=== PATIENT | female | born 1975 | race Caucasian/White ===

== ENCOUNTER 2019-10-11 00:24 | Emergency (ER) | payer MEDICAID ==
[~2019-10-11] VITALS: Ht 149.9 cm; Wt 61.2 kg
[2019-10-11 00:29] VITALS: BP 139/74
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
[2019-10-11 00:57] VITALS: BP 139/74
--- NOTE | 2019-10-11 00:59 | NUR ---
Patient discharged with v/s stable. Written and verbal after care instructions given and explained. Patient alert, oriented and verbalized understanding of instructions. Ambulatory with steady gait. All questions addressed prior to discharge. ID band removed. Patient advised to follow up with PMD. Rx of MOTRIN, CIRPO AND PROVERA given. Patient educated on indication of medication including possible reaction and side effects. Opportunity to ask questions provided and answered. ALLOWED TIME TO ASK QUESTIONS. ALL QUESTIONS ANSWERED.
== END 2019-10-11 00:59 | disposition home or self-care (01) ==
LOC: MED 00:24
DX: N93.8 Other specified abnormal uterine and vaginal bleeding (principal); N39.0 Urinary tract infection, site not specified; F17.200 Nicotine dependence, unspecified, uncomplicated; F15.90 Other stimulant use, unspecified, uncomplicated; Z98.890 Other specified postprocedural states
CPT/HCPCS: 81002; 81025; 99283

== ENCOUNTER 2019-11-25 18:31 | Emergency (ER) | payer MEDICAID ==
[~2019-11-25] VITALS: Ht 149.9 cm; Wt 59.0 kg
[2019-11-25 18:55] VITALS: BP 141/82
--- NOTE | 2019-11-25 18:59 | NUR ---
44 y/o F presents to ER c/o vaginal bleeding. Pt has been bleeding x2 weeks. Per pt she had the same issue in October and was given medication to help. Pt c/o 10/10 suprapubic cramping pain that comes and goes. A&O x4. Respirations even and unlabored. Waiting for ERMD to evaluate pt. Allergies: NKA Med hx: none
--- NOTE | 2019-11-25 19:05 | NUR ---
REPORT GIVEN FROM [place] [place]. TRANSFER OF CARE GIVEN.
--- NOTE | 2019-11-25 19:05 | NUR ---
Lab at bedside
--- NOTE | 2019-11-25 19:08 | NUR ---
PT MOVED TO BED 6
--- NOTE | 2019-11-25 19:11 | NUR ---
PT TAKEN TO ULTRASOUND
[2019-11-25 19:15] LABS: BASOPHILS # (AUTO) 0.1 K/uL (0.00-0.22); BASOPHILS % (AUTO) 0.8 % (0.0-2.0); EOSINOPHILS # (AUTO) 0.2 K/uL (0-0.4); EOSINOPHILS % (AUTO) 1.8 % (0.0-4.0); HEMATOCRIT 34.9 % (36-48); HEMOGLOBIN 11.1 g/dL (12.0-16.0); LYMPHOCYTES # (AUTO) 1.2 K/uL (2.5-16.5); MEAN CORPUSCULAR HEMOGLOBIN 26 pg (27-31); MEAN CORPUSCULAR HGB CONC 32 g/dL (33-37); MEAN CORPUSCULAR VOLUME 82.6 fL (80-94); MONOCYTES # (AUTO) 0.6 K/uL (0.8-1.0); MONOCYTES % (AUTO) 5.7 % (1.7-9.3); NEUTROPHILS # (AUTO) 8.1 K/uL (1.8-7.7); NEUTROPHILS % (AUTO) 79.7 % (42.2-75.2); PLATELET COUNT (AUTO) 275 K/uL (140-450); RED BLOOD CELL COUNT(AUTO) 4.23 MIL/uL (4.20-5.40); RED CELL DISTRIBUTION WIDTH 15.3 % (11.6-13.7); WHITE BLOOD COUNT (AUTO) 10.1 K/uL (4.8-10.8)
--- NOTE | 2019-11-25 19:33 | NUR ---
PT RETURN FROM US
--- NOTE | 2019-11-25 19:37 | NUR ---
PT ABLE TO AMBULATE TO BATHROOM WITH STEADY GAIT.
[2019-11-25 20:44] LABS: APPEARANCE,URINE CLEAR (CLEAR); BILIRUBIN,URINE NEGATIVE (NEGATIVE); BLOOD, URINE 3+ (NEGATIVE); COLOR,URINE YELLOW (YELLOW); LEUKOCYTE ESTERASE ,URINE TRACE (NEGATIVE); NITRITE, URINE NEGATIVE (NEGATIVE); UGLUCOSE NEGATIVE (NEGATIVE)
[2019-11-25 20:47] LABS: RBC,URINE >20 (MANY) /HPF (0-5); WBC,URINE 0-5 /HPF (0-5)
--- NOTE | 2019-11-25 20:54 | NUR ---
Dr. Driver examining patient.
--- NOTE | 2019-11-25 20:59 | NUR ---
PT RESTING IN BED SITTING UPRIGHT. RESPIRATIONS ARE EVEN AND UNLABORED. SKIN IS WARM AND DRY TO TOUCH. PT CHANGED POSITION IN BED FOR COMFORT. PAIN REDUCED FROM 10/10 TO 8/10 IN LOWER ADB. PT AXO X4. BED LOCKED AND IN LOWEST POSITION.
[2019-11-25 21:17] VITALS: BP 138/79
--- NOTE | 2019-11-25 21:17 | NUR ---
Patient discharged with v/s stable. Written and verbal after care instructions given and explained. Patient alert, oriented and verbalized understanding of instructions. Ambulatory with steady gait. All questions addressed prior to discharge. ID band removed. Patient advised to follow up with PMD. Rx of Provera and Motrin given. Patient educated on indication of medication including possible reaction and side effects. Opportunity to ask questions provided and answered.
== END 2019-11-25 21:17 | disposition home or self-care (01) ==
LOC: MED 18:31
DX: N93.8 Other specified abnormal uterine and vaginal bleeding (principal); N83.202 Unspecified ovarian cyst, left side; N83.201 Unspecified ovarian cyst, right side; F17.210 Nicotine dependence, cigarettes, uncomplicated
CPT/HCPCS: 36415; 76856; 81001; 81025; 85025; 99284; Q0092